=== PATIENT | female | born 1985 | race Two or more races ===

== ENCOUNTER 2017-03-10 20:16 | Inpatient (IN) | payer MEDICAID ==
[~2017-03-10] VITALS: Ht 154.9 cm; Wt 79.4 kg
[2017-03-10] MEDS ORDERED: DEXT 5%/LR + PITOCIN 20UNITS/L 1,000 ML IV SCH ×2 (20:35→22:30)
[2017-03-10] MEDS ORDERED: LACTATED RINGERS 1,000 ML IV SCH (20:35)
[2017-03-10] MEDS ORDERED: CARBOPROST TROMETHAMINE 250 MCG/ML AMPUL IM PRN (20:45)
[2017-03-10] MEDS ORDERED: METHYLERGONOVINE MALEATE 0.2 MG/ML IM PRN ×2 (20:45→22:30)
[2017-03-10] MEDS ORDERED: MISOPROSTOL 100MCG TABLET VG SCH (20:45)
[2017-03-10] MEDS ORDERED: LIDOCAINE HCL 1% 20ML VIAL (Pyxis) INJ INFIL SCH (20:45)
[2017-03-10 20:57] LABS: CLARITY URINE CLEAR (CLEAR); COLOR URINE YELLOW (YELLOW); GLUCOSE URINE NEGATIVE (NEGATIVE); KETONES URINE 2+ (NEGATIVE); LEUKOCYTE ESTERASE URINE NEGATIVE (NEGATIVE); NITRITE URINE NEGATIVE (NEGATIVE); OCCULT BLOOD URINE NEGATIVE (NEGATIVE); PROTEIN URINE 1+ (NEGATIVE); SPECIFIC GRAVITY URINE 1.032 (1.005-1.030); UROBILINOGEN URINE 0.2 E.U./dL (0.2-1.0)
[2017-03-10 20:59] LABS: INR 0.9; PARTIAL THROMBOPLASTIN TIME 25.1 sec (23.4-31.0); PROTHROMBIN TIME 9.7 sec (9.4-11.6)
[2017-03-10 21:09] LABS: *AMPHETAMINES SCREEN URINE NEGATIVE (NEGATIVE); *BARBITURATES SCREEN URINE NEGATIVE (NEGATIVE); *BENZODIAZEPINES SCREEN URINE NEGATIVE (NEGATIVE); *COCAINE SCREEN URINE NEGATIVE (NEGATIVE); CANNABINOID URINE SCREEN NEGATIVE (NEGATIVE); METHADONE URINE SCREEN NEGATIVE (NEGATIVE); OPIATES URINE SCREEN NEGATIVE (NEGATIVE); PHENCYCLIDINE URINE SCREEN NEGATIVE (NEGATIVE)
[2017-03-10 21:14] LABS: BASOPHILS % 0.5 % (0.0-2.0); EOSINOPHILS % 0.4 % (0.0-5.0); HEMATOCRIT. 37.6 % (36.0-48.0); HEMOGLOBIN. 12.3 g/dL (12.0-16.0); LYMPHOCYTES % 22.8 % (20.0-50.0); MEAN CORPUSCULAR HEMOGLOBIN 25.8 pg (28.0-32.0); MEAN CORPUSCULAR VOLUME 78.8 fL (81.0-99.0); MEAN PLATELET VOLUME 10.3 fl (7.4-10.4); MONOCYTES % 4.8 % (2.0-8.0); NEUTROPHILS % 71.5 % (40.0-76.0); PLATELET 222 x1000/uL (130-400); RED BLOOD CELL COUNT 4.77 mill/uL (4.2-5.4); RED CELL DISTRIBUTION WIDTH 15.7 % (11.6-14.6)
[2017-03-10 21:27] LABS: HEPATITIS B SURFACE ANTIGEN NEGATIVE; RUBELLA IGG 62.7 IU/mL (4.99-10)
[2017-03-10] MEDS ORDERED: PREN1TAB78 PO (22:07)
[2017-03-10] MEDS ORDERED: RHO(D) IMMUNE GLOBULIN 300 MCG/SYR IM PRN (22:30)
[2017-03-10] MEDS ORDERED: HEMORRHOIDAL SUPP PR PRN (22:30)
[2017-03-10] MEDS ORDERED: GLYCERIN/WITCH HAZEL LEAF MEDICATED PAD TOP PRN (22:30)
[2017-03-10] MEDS ORDERED: DIPHENHYDRAMINE 25MG CAPSULE PO PRN (22:30)
[2017-03-10] MEDS ORDERED: LANOLIN OINT 0.25 GM TUBE TOP PRN (22:30)
[2017-03-10] MEDS ORDERED: ACETAMINOPHEN WITH CODEINE 300/30MG TABLET PO PRN ×2 (22:30)
[2017-03-10] MEDS ORDERED: IBUPROFEN 400MG TABLET PO PRN (22:30)
[2017-03-10] MEDS ORDERED: BISACODYL 10MG SUPP PR PRN (22:30)
[2017-03-11 00:30] VITALS: BP 118/64
[2017-03-11 01:00] VITALS: BP 115/65
[2017-03-11 04:00] VITALS: BP 117/68
[2017-03-11 07:40] LABS: HEMATOCRIT 35.3 % (36.0-48.0); HEMOGLOBIN 11.7 g/dL (12.0-16.0)
[2017-03-11 08:10] VITALS: BP 96/55
[2017-03-11] MEDS: PRENATAL VIT/FE FUMARATE/FA TABLET PO SCH (08:32)
[2017-03-11] MEDS: SIMETHICONE 80MG TABLET CHEW PO SCH ×3 (08:32→21:34)
[2017-03-11 14:55] VITALS: BP 118/71
[2017-03-11] MEDS ORDERED: DOCUSATE SODIUM 100MG CAPSULE PO SCH (21:00)
[2017-03-11 23:40] VITALS: BP 101/65
[2017-03-12] MEDS: PRENATAL VIT/FE FUMARATE/FA TABLET PO SCH (09:20)
[2017-03-12] MEDS: SIMETHICONE 80MG TABLET CHEW PO SCH (09:20)
[2017-03-12 09:55] VITALS: BP 111/72
== END 2017-03-12 14:00 | disposition home or self-care (01) | DRG 560 ==
LOC: EDBD 20:16 → L&D 20:16 → OBSVTOIN 20:16 → 7EST PP/OB 03-11 00:06
PROVIDERS: ADMIT Obstetrics & Gynecology; ATTEND Obstetrics & Gynecology
PROC: 10E0XZZ Delivery of Products of Conception, External Approach (ICD-10-PCS; principal; 2017-03-10 20:31)
DX: O48.0 Post-term pregnancy (principal); Z37.0 Single live birth; Z3A.40 40 weeks gestation of pregnancy
CPT/HCPCS: 36415; 80305; 81001; 85014; 85018; 85025; 85610; 85730; 86592; 86703; 86762; 86850; 86900; 87340; 99281; J2590; J7120